=== PATIENT | male | born 1985 | race Hispanic/Latino ===

== ENCOUNTER 2025-01-08 13:30 | Emergency (ER) | payer OTHER ==
[~2025-01-08] VITALS: Ht 193 cm; Wt 139.8 kg
[2025-01-08] MEDS ORDERED: MELATONIN3 MG PO (15:59)
[2025-01-08] MEDS ORDERED: [UNRECOGNIZED DRUG - OTHER] PO (16:01)
[2025-01-08 18:50] VITALS: BP 162/84
== END 2025-01-08 18:50 | disposition home or self-care (01) ==
LOC: ED 13:30
DX: M79.89 Other specified soft tissue disorders (principal); I10 Essential (primary) hypertension
CPT/HCPCS: 93971; 99284-25